=== PATIENT | male | born 1965 | race Caucasian/White ===

== ENCOUNTER 2019-05-11 12:33 | Emergency (ER) | payer OTHER ==
[~2019-05-11] VITALS: Ht 177.8 cm; Wt 77.6 kg
== END 2019-05-11 16:49 | disposition home or self-care (01) ==
LOC: ER 12:33
DX: T58.8X1A Toxic effect of carbon monoxide from other source, accidental (unintentional), initial encounter (principal); T65.891A Toxic effect of other specified substances, accidental (unintentional), initial encounter; T59.891A Toxic effect of other specified gases, fumes and vapors, accidental (unintentional), initial encounter; T52.3X1A Toxic effect of glycols, accidental (unintentional), initial encounter; Y92.520 Airport as the place of occurrence of the external cause